=== PATIENT | male | born 1980 | race Caucasian/White ===

== ENCOUNTER 2021-06-16 13:34 | Inpatient (IN) | payer OTHER ==
[~2021-06-16] VITALS: Ht 175.3 cm; Wt 100.7 kg
[~2021-06-16 13:34] MED LIST: PREDNISONE10 M1 PO; SULFAMETHOXAZO1 EACH PO
[2021-06-16 15:20] LABS: HEMOGLOBIN 13.4 gm/dl (14.0-17.5); RED BLOOD COUNT 4.46 M/UL (4.20-5.50); WHITE BLOOD COUNT 8.1 K/UL (4.5-11.0)
[2021-06-16 15:54] LABS: BUN/CREATININE RATIO 8 (0-10)
[2021-06-16 19:08] LABS: BUN/CREATININE RATIO 7 (0-10)
[2021-06-16 23:32] LABS: BUN/CREATININE RATIO 7 (0-10)
[2021-06-17 05:30] LABS: RED BLOOD COUNT 4.36 M/UL (4.20-5.50); WHITE BLOOD COUNT 7.7 K/UL (4.5-11.0)
[2021-06-17 06:12] LABS: BUN/CREATININE RATIO 7 (0-10)
[2021-06-17 10:07] LABS: BUN/CREATININE RATIO 8 (0-10)
[2021-06-18 04:43] LABS: HEMOGLOBIN 11.6 gm/dl (14.0-17.5); RED BLOOD COUNT 3.93 M/UL (4.20-5.50)
[2021-06-18 05:15] LABS: BUN/CREATININE RATIO 13 (0-10)
[2021-06-19 03:58] LABS: HEMOGLOBIN 12.3 gm/dl (14.0-17.5); RED BLOOD COUNT 4.11 M/UL (4.20-5.50); WHITE BLOOD COUNT 8.2 K/UL (4.5-11.0)
[2021-06-19 04:28] LABS: BUN/CREATININE RATIO 12 (0-10)
--- NOTE | 2021-06-19 21:39 | NUR ---
PT HAS BEEN PERIODICALLY REFUSING DIFFERENT TYPES OF CARE. HE HAS REFUSED NEB TREATMENTS AND REFUSING TO WEAR THE BIPAP. PT IS NOW REFUSING TO WEAR THE PLASTIC FABRICATOR. I HAVE EDUCATED THE PT ON THE IMPORTANCE OF WEARING THE MONITOR SO WE ARE ABLE TO KEEP AN EYE ON HIS CARE. PT CLAIMS HE THINKS HE WILL GET BETTER IF HE DOESN'T HAVE TO FOCUS ON THE CORDS AND JUST HIS BREATHING. I AM NOT SURE THE PT UNDERSTANDS THE GRAVITY OF THE SITUATION. ALERTED .
[2021-06-20 09:05] LABS: RED BLOOD COUNT 4.06 M/UL (4.20-5.50)
[2021-06-20 09:12] LABS: WHITE BLOOD COUNT 10.9 K/UL (4.5-11.0)
[2021-06-20 09:33] LABS: BUN/CREATININE RATIO 15 (0-10)
[2021-06-20 10:17] LABS: ADENOVIRUS F 40/41 Not Detected (Negative); ASTROVIRUS Not Detected (Negative); CAMPYLOBACTER Not Detected (Negative); CLOSTRIDIUM DIFFICILE TOX A/B Not Detected (Negative); CRYPTOSPORIDIUM Not Detected (Negative); E.COLI 0157 Not Detected (Negative); ENTAMOEBA HISTOLYTICA Not Detected (Negative); ENTEROAGGREGATIVE E.COLI (EAEC Not Detected (Negative); ENTEROPATHOGENIC E.COLI (EPEC) Not Detected (Negative); ENTEROTOXIGENIC E.COLI (ETEC) Not Detected (Negative); GIARDIA LAMBLIA Not Detected (Negative); NOROVIRUS GI/GII Not Detected (Negative); PLESIOMONAS SHIGELLOIDES Not Detected (Negative); ROTOVIRUS A Not Detected (Negative); SALMONELLA Not Detected (Negative); SAPOVIRUS Not Detected (Negative); SHIG/ENTEROINVAS.ECOLI (EIEC) Not Detected (Negative); SHIGA-LIK TOX.PRO.E.COLI (STEC Not Detected (Negative); VIBRIO Not Detected (Negative); VIBRIO CHOLERAE Not Detected (Negative); YERSINIA ENTEROCOLITICA Not Detected (Negative)
[2021-06-21 03:17] LABS: BUN/CREATININE RATIO 14 (0-10)
[2021-06-22 03:30] LABS: BUN/CREATININE RATIO 17 (0-10)
[2021-06-23 09:12] LABS: BUN/CREATININE RATIO 16 (0-10)
[2021-06-24 04:24] LABS: BUN/CREATININE RATIO 19 (0-10)
--- NOTE | 2021-06-25 02:57 | NUR ---
0137 - DR. MILLER NOTIFIED OF PATIENT'S OXYGEN DROPPING AFTER TRYING TO SWITCH HIM TO BIPAP FROM AIRVO. ATTEMPT WAS MADE TO SWITCH BACK TO AIRVO, WITH A FURTHER DROP IN OXYGEN SATURATION, AND THEN PLACED BACK ON BIPAP, HOLDING AT 84-85% SATURATION. ORDERS GIVEN TO SWITCH BIPAP SETTINGS TO 20/14, AND IF STILL HYPOXIC TO SWITCH TO CPAP 18. 0152 - DR. MILLER NOTIFIED OF PATIENT'S OXYGEN SATURATION STILL REMAINING 84-85% ON ANY OF THE SETTINGS TRIED. PATIENT'S HEART RATE IS NOW IN 140'S, AND GETTING ANXIOUS WITH MASK. TOLD TO KEEP HIM ON CPAP 18, PRONE HIM, AND ASK ABOUT INTUBATION. 0157 - NOTIFIED DR. MILLER THAT PATIENT STATES HE CANNOT TOLERATE THE BIPAP MASK AND THAT HE WOULD RATHER BE PLACED ON LIFE SUPPORT THAN CONTINUE TO WEAR IT. TOLD TO CALL DR. OSWALD AND PREPARE FOR INTUBATION. 0200 - BROTHER, CORINE GONSALVES, NOTIFIED OF PATIENT'S NEED TO BE INTUBATED AND THAT HE WOULD BE MOVED TO ICU. 0215 - PATIENT PREPPED FOR INTUBATION. HR 128, BP 159/104, RR 41, 83% ON CPAP 100% FIO2. 0216 - DR. OSWALD IN ROOM, 20G L HAND PLACED BY WILLIS PRINCE RN 0219 - 250MG KETAMINE GIVEN. HR 118, BP 139/97, RR 51, 81%. 0220 - 40MG ROCURONIUM GIVEN. 0223 - ATTEMPTED INTUBATION WITH ISSUE PLACING, PATIENT HYPEROXYGENATED. 0225 - RE-ATTEMPT FOR INTUBATION. 7.5 ETT, 25 AT THE LIP. HR 65, BP 144/88, RR 11, 57%. PATIENT BAGGED UNTIL VENTILATOR CONNECTED. 0230 - PATIENT TAKEN TO ICU ON VENTILATOR, TRANSPORTED BY DR. OSWALD, LORIN CESPEDES, LIZ, MADELYN PETERSON, ON AED MONITOR.
--- NOTE | 2021-06-25 03:20 | NUR ---
ATTEMPTED PHONE CALL TO PATIENTS MOTHER LISTED EMERGENCY CONTACT. CALL WENT STRAIGHT TO A VOICEMAIL THAT HAS NOT BEEN SET UP AND COULD NOT LEAVE A MESSAGE.
[2021-06-25 05:07] LABS: HEMOGLOBIN 13.3 gm/dl (14.0-17.5); RED BLOOD COUNT 4.44 M/UL (4.20-5.50); WHITE BLOOD COUNT 15.9 K/UL (4.5-11.0)
[2021-06-25 05:36] LABS: BUN/CREATININE RATIO 29 (0-10)
[2021-06-26 05:13] LABS: HEMOGLOBIN 12.5 gm/dl (14.0-17.5); RED BLOOD COUNT 4.23 M/UL (4.20-5.50)
[2021-06-26 05:27] LABS: WHITE BLOOD COUNT 10.6 K/UL (4.5-11.0)
[2021-06-26 05:49] LABS: BUN/CREATININE RATIO 21 (0-10)
[2021-06-27 04:54] LABS: HEMOGLOBIN 11.6 gm/dl (14.0-17.5); RED BLOOD COUNT 3.86 M/UL (4.20-5.50); WHITE BLOOD COUNT 10.3 K/UL (4.5-11.0)
[2021-06-27 05:20] LABS: BUN/CREATININE RATIO 23 (0-10)
--- NOTE | 2021-06-27 09:14 | NUR ---
0800: PATIENT UNPRONED. SKIN ON PRESSURE POINTS ARE INTACT. CHEST TUBE IN PLACE. OXYGEN SATURATION IS 99%. FACIAL EDEMA 2+ AND NO TUBE GOINS REPLACED BY FISH BAIT PICKER.
[2021-06-28 05:25] LABS: HEMOGLOBIN 11.3 gm/dl (14.0-17.5); RED BLOOD COUNT 3.96 M/UL (4.20-5.50)
[2021-06-28 05:43] LABS: BUN/CREATININE RATIO 28 (0-10)
[2021-06-29 05:02] LABS: RED BLOOD COUNT 3.77 M/UL (4.20-5.50)
[2021-06-29 05:20] LABS: WHITE BLOOD COUNT 9.8 K/UL (4.5-11.0)
[2021-06-29 05:44] LABS: BUN/CREATININE RATIO 36 (0-10)
[2021-06-30 05:25] LABS: HEMOGLOBIN 10.7 gm/dl (14.0-17.5); RED BLOOD COUNT 3.8 M/UL (4.20-5.50); WHITE BLOOD COUNT 11.6 K/UL (4.5-11.0)
[2021-06-30 06:01] LABS: BUN/CREATININE RATIO 39 (0-10)
[2021-07-01 04:23] LABS: HEMOGLOBIN 11.5 gm/dl (14.0-17.5); RED BLOOD COUNT 3.96 M/UL (4.20-5.50); WHITE BLOOD COUNT 8.9 K/UL (4.5-11.0)
[2021-07-01 05:11] LABS: BUN/CREATININE RATIO 46 (0-10)
[2021-07-02 04:54] LABS: HEMOGLOBIN 12.4 gm/dl (14.0-17.5); RED BLOOD COUNT 4.28 M/UL (4.20-5.50); WHITE BLOOD COUNT 14.3 K/UL (4.5-11.0)
[2021-07-02 05:31] LABS: BUN/CREATININE RATIO 58 (0-10)
[2021-07-03 05:11] LABS: HEMOGLOBIN 11.2 gm/dl (14.0-17.5); RED BLOOD COUNT 3.89 M/UL (4.20-5.50)
[2021-07-03 05:53] LABS: BUN/CREATININE RATIO 58 (0-10)
[2021-07-04 05:37] LABS: HEMOGLOBIN 10.4 gm/dl (14.0-17.5); RED BLOOD COUNT 3.54 M/UL (4.20-5.50); WHITE BLOOD COUNT 8.9 K/UL (4.5-11.0)
[2021-07-04 06:15] LABS: BUN/CREATININE RATIO 61 (0-10)
--- NOTE | 2021-07-04 19:00 | NUR ---
PATIENT EXPERIENCING RAPID FLUCTUATIONS IN BLOOD PRESSURE THROUGHOUT THE DAY. DR. MONTE ON UNIT FOR THE ENTIRETY OF THE DAY AND AWARE OF THESE FLUCTUATIONS. SEDATION TITRATED MULTIPLE TIMES TO ACCOMODATE THESE FLUCTUATIONS TRYING TO GET THE PATIENT STABILIZED ON PRECEDEX DRIP AND WEAN DOWN THE DIPRIVAN PER DR. DOMINGUEZ'S REQUEST THIS AM. DR. DOMINGUEZ ALSO AWARE OF THESE RAPID FLUCTUATIONS AND CHANGES IN PATIENT CONDITION.
[2021-07-05 04:40] LABS: HEMOGLOBIN 11.4 gm/dl (14.0-17.5); RED BLOOD COUNT 3.88 M/UL (4.20-5.50)
[2021-07-05 05:10] LABS: BUN/CREATININE RATIO 65 (0-10)
[2021-07-06 05:08] LABS: WHITE BLOOD COUNT 11.4 K/UL (4.5-11.0)
[2021-07-06 05:12] LABS: HEMOGLOBIN 9.3 gm/dl (14.0-17.5); RED BLOOD COUNT 3.15 M/UL (4.20-5.50)
[2021-07-06 05:28] LABS: BUN/CREATININE RATIO 66 (0-10)
[2021-07-07 05:00] LABS: HEMOGLOBIN 9.6 gm/dl (14.0-17.5); RED BLOOD COUNT 3.27 M/UL (4.20-5.50); WHITE BLOOD COUNT 13.3 K/UL (4.5-11.0)
[2021-07-07 05:23] LABS: BUN/CREATININE RATIO 67 (0-10)
[2021-07-08 04:39] LABS: HEMOGLOBIN 8.3 gm/dl (14.0-17.5); RED BLOOD COUNT 2.8 M/UL (4.20-5.50); WHITE BLOOD COUNT 11.7 K/UL (4.5-11.0)
[2021-07-08 04:57] LABS: BUN/CREATININE RATIO 62 (0-10)
[2021-07-08 16:31] LABS: HEMOGLOBIN 9.2 gm/dl (14.0-17.5); WHITE BLOOD COUNT 13.4 K/UL (4.5-11.0)
[2021-07-08 17:05] LABS: RED BLOOD COUNT 3.11 M/UL (4.20-5.50)
[2021-07-09 05:17] LABS: HEMOGLOBIN 8.6 gm/dl (14.0-17.5); RED BLOOD COUNT 2.96 M/UL (4.20-5.50); WHITE BLOOD COUNT 11.3 K/UL (4.5-11.0)
[2021-07-09 05:41] LABS: BUN/CREATININE RATIO 52 (0-10)
[2021-07-10 05:34] LABS: HEMOGLOBIN 8.4 gm/dl (14.0-17.5); RED BLOOD COUNT 2.89 M/UL (4.20-5.50); WHITE BLOOD COUNT 10.3 K/UL (4.5-11.0)
[2021-07-10 05:56] LABS: BUN/CREATININE RATIO 58 (0-10)
[2021-07-11 05:10] LABS: HEMOGLOBIN 9.3 gm/dl (14.0-17.5); RED BLOOD COUNT 3.08 M/UL (4.20-5.50); WHITE BLOOD COUNT 9.7 K/UL (4.5-11.0)
[2021-07-11 05:33] LABS: BUN/CREATININE RATIO 69 (0-10)
[2021-07-12 05:06] LABS: HEMOGLOBIN 8.5 gm/dl (14.0-17.5); RED BLOOD COUNT 2.89 M/UL (4.20-5.50); WHITE BLOOD COUNT 8.8 K/UL (4.5-11.0)
[2021-07-12 05:28] LABS: BUN/CREATININE RATIO 54 (0-10)
[2021-07-13 05:37] LABS: HEMOGLOBIN 8.9 gm/dl (14.0-17.5); RED BLOOD COUNT 2.98 M/UL (4.20-5.50)
[2021-07-14 04:16] LABS: RED BLOOD COUNT 3.01 M/UL (4.20-5.50); WHITE BLOOD COUNT 8.7 K/UL (4.5-11.0)
[2021-07-14 08:50] LABS: BUN/CREATININE RATIO 44 (0-10)
[2021-07-15 05:56] LABS: HEMOGLOBIN 8.9 gm/dl (14.0-17.5); RED BLOOD COUNT 2.95 M/UL (4.20-5.50); WHITE BLOOD COUNT 8.3 K/UL (4.5-11.0)
[2021-07-15 08:09] LABS: BUN/CREATININE RATIO 51 (0-10)
[2021-07-16 08:20] LABS: HEMOGLOBIN 8.1 gm/dl (14.0-17.5); RED BLOOD COUNT 2.69 M/UL (4.20-5.50)
[2021-07-16 08:23] LABS: WHITE BLOOD COUNT 5.6 K/UL (4.5-11.0)
[2021-07-16 08:47] LABS: BUN/CREATININE RATIO 43 (0-10)
--- NOTE | 2021-07-17 15:42 | NUR ---
0700- LARGE HEMATOMA ON BILATERAL LOWER ABDOMINAL QUADRANTS, MD MONTE NOTIFIED AND WCTM. NO ORDERS RECIEVED.
[2021-07-18 11:07] LABS: HEMOGLOBIN 8.3 gm/dl (14.0-17.5); RED BLOOD COUNT 2.73 M/UL (4.20-5.50); WHITE BLOOD COUNT 5.4 K/UL (4.5-11.0)
[2021-07-18 11:51] LABS: BUN/CREATININE RATIO 39 (0-10)
[2021-07-19 05:13] LABS: HEMOGLOBIN 8.8 gm/dl (14.0-17.5); RED BLOOD COUNT 2.88 M/UL (4.20-5.50); WHITE BLOOD COUNT 5.4 K/UL (4.5-11.0)
[2021-07-19 05:35] LABS: BUN/CREATININE RATIO 53 (0-10)
[2021-07-20 11:58] LABS: BUN/CREATININE RATIO 42 (0-10)
--- NOTE | 2021-07-20 16:09 | NUR ---
1215: OBSERVED PATIENT IN DISTRESS FROM POD OUTSIDE OF PATIENTS ROOM. PATIENTS OXYGEN SATURATION 98 PERCENT ON CPAP MODE PRESSURE SUPPORT OF 8. ORAL SUCTIONED PATIENT. PTS OXYGEN SATURATION 96%. SUCTIONED PATIENTS TRACH AND MADE SURE CONNECTIONS WERE SECURE. DR HAMM CALLED TO BEDSIDE TO MONITOR PATIENT. PEAK PRESSURES HIGH ON VENTILATOR. VENTILATOR SETTINGS CHANGED TO ASSIST CONTROL RATE OF 20, TV 450, FI02 100 PERCENT. PATIENT CONTINUED TO DECLINE DESPITE CHANGES MADE. MD BAGGED PATIENT AND PREPARED FOR EMERGENT BRONCHOSCOPY. 1220: EMERGENT BEDSIDE BRONCHOSCOPY/ DR HAMM, RN, AND RESPIRATORY THERAPIST AT [facility]. SPECIMENS OBRAINED. SEDATION INITIATED PER MD ORDER 1222: LEVOPHED TITRATED BY . AT BEDSIDE. PT HYPOTENSIVE BP 62/33 HEART RATE 103. 1230: PATIENTS MOTHER CONTACTED VIA PHONE TO GIVE UPDATE ON PATIENT 1237: PATIENTS BROTHER CONTACTED VIA PHONE TO GIVE UPDATE ON PATIENT
--- NOTE | 2021-07-20 16:25 | NUR ---
1400: DR HAMM CONTACTED ABOUT PATIENTS FLUCTIATION IN HEART RATE AND BLOOD PRESSURE. PTS HR 139, BP 71/40. MD AT BEDSIDE. SEE EMAR FOR MEDICATIONS ADMINISTERED. DR HAMM DOES NOT WANT TO CONSULT CARDIOLOGY AT THIS TIME 1415: DR GORE, HOSPITALIST, NOTIFIED OF PATIENTS CONDITION.
[2021-07-21 08:19] LABS: HEMOGLOBIN 8.1 gm/dl (14.0-17.5); RED BLOOD COUNT 2.68 M/UL (4.20-5.50); WHITE BLOOD COUNT 5.3 K/UL (4.5-11.0)
[2021-07-21 08:40] LABS: BUN/CREATININE RATIO 53 (0-10)
[2021-07-22] MEDS ORDERED: VITAMIN B-1100 M1 PO (09:54)
[2021-07-22] MEDS ORDERED: KEPPRA 500 MG500 MG PEG (09:54)
[2021-07-22] MEDS ORDERED: VITAMIN B-121000 MC3 PEG (09:54)
[2021-07-22] MEDS ORDERED: HUMALOG 10100 UNITS/ SC (09:54)
[2021-07-22] MEDS ORDERED: LABETALOL H5 MG/1 M1 IVP (09:54)
[2021-07-22] MEDS ORDERED: ACETAMINOPHEN325 MG PO (09:54)
[2021-07-22] MEDS ORDERED: FOLIC ACID 1 MG1 MG GT (09:54)
[2021-07-22] MEDS ORDERED: PERCOCET 5/325 T1 EA PEG (09:54)
[2021-07-22] MEDS ORDERED: ENOXAPARIN40 MG/0.4 SC (09:54)
[2021-07-22] MEDS ORDERED: HYDRALAZIN20 MG/1 ML IVP (09:54)
[2021-07-22] MEDS ORDERED: VITAMIN C 500500 MG PO (09:54)
[2021-07-22] MEDS ORDERED: IPRAT-ALBUT 0.5-3 ML NEB (09:54)
[2021-07-22] MEDS ORDERED: PROTONIX IV40 MG IVP (09:54)
== END 2021-07-22 11:30 | DRG 3 ==
LOC: ER1 13:34 → 2 EAST 16:54 → CDU 16:54 → PROG CARE 16:54 → CCU 16:54 → ER1 16:54 → PROG CARE 06-18 01:00 → CDU 06-18 01:00 → PROG CARE 06-18 01:00 → 2 EAST 06-25 03:41 → CCU 06-25 03:41 → 2 EAST 06-25 04:08 → CDU 06-25 16:45 → CCU 07-22 11:30
PROVIDERS: Internal Medicine; Internal Medicine Pulmonary Disease; Physician Assistant Medical; Student in an Organized Health Care Education/Training Program; Surgery; ADMIT Internal Medicine
PROC: XW033E5 Introduction of Remdesivir Anti-infective into Peripheral Vein, Percutaneous Approach, New Technology Group 5 (ICD-10-PCS; 2021-06-16)
PROC: 3E0333Z Introduction of Anti-inflammatory into Peripheral Vein, Percutaneous Approach (ICD-10-PCS; 2021-06-16)
PROC: 5A1955Z Respiratory Ventilation, Greater than 96 Consecutive Hours (ICD-10-PCS; 2021-06-25)
PROC: 0BH17EZ Insertion of Endotracheal Airway into Trachea, Via Natural or Artificial Opening (ICD-10-PCS; 2021-06-25)
PROC: 0W9B00Z Drainage of Left Pleural Cavity with Drainage Device, Open Approach (ICD-10-PCS; 2021-06-25)
PROC: 05HM33Z Insertion of Infusion Device into Right Internal Jugular Vein, Percutaneous Approach (ICD-10-PCS; 2021-06-25)
PROC: B543ZZA Ultrasonography of Right Jugular Veins, Guidance (ICD-10-PCS; 2021-06-25)
PROC: 8E0ZXY6 Isolation (ICD-10-PCS; 2021-06-25)
PROC: 0DH67UZ Insertion of Feeding Device into Stomach, Via Natural or Artificial Opening (ICD-10-PCS; 2021-07-05)
PROC: 0D968ZZ Drainage of Stomach, Via Natural or Artificial Opening Endoscopic (ICD-10-PCS; 2021-07-09)
PROC: 0DH63UZ Insertion of Feeding Device into Stomach, Percutaneous Approach (ICD-10-PCS; 2021-07-11)
PROC: 3E0G76Z Introduction of Nutritional Substance into Upper GI, Via Natural or Artificial Opening (ICD-10-PCS; 2021-07-11)
PROC: 4A10X4Z Monitoring of Central Nervous Electrical Activity, External Approach (ICD-10-PCS; 2021-07-15)
PROC: 0B113F4 Bypass Trachea to Cutaneous with Tracheostomy Device, Percutaneous Approach (ICD-10-PCS; principal; 2021-07-20)
PROC: 0B9F8ZX Drainage of Right Lower Lung Lobe, Via Natural or Artificial Opening Endoscopic, Diagnostic (ICD-10-PCS; 2021-07-20)
PROC: 3E033XZ Introduction of Vasopressor into Peripheral Vein, Percutaneous Approach (ICD-10-PCS; 2021-07-21)
DX: U07.1 COVID-19 (principal); J12.82 Pneumonia due to coronavirus disease 2019; J15.9 Unspecified bacterial pneumonia; J80 Acute respiratory distress syndrome; A41.9 Sepsis, unspecified organism; R65.20 Severe sepsis without septic shock; G93.41 Metabolic encephalopathy; K25.4 Chronic or unspecified gastric ulcer with hemorrhage; E87.1 Hypo-osmolality and hyponatremia; M62.82 Rhabdomyolysis; I47.1 Supraventricular tachycardia; L89.152 Pressure ulcer of sacral region, stage 2; E87.2 Acidosis; K92.0 Hematemesis; J95.859 Other complication of respirator [ventilator]; E87.6 Hypokalemia; T81.82XA Emphysema (subcutaneous) resulting from a procedure, initial encounter; E66.9 Obesity, unspecified; G40.909 Epilepsy, unspecified, not intractable, without status epilepticus; R94.5 Abnormal results of liver function studies; E87.5 Hyperkalemia; T17.990A Other foreign object in respiratory tract, part unspecified in causing asphyxiation, initial encounter; D53.1 Other megaloblastic anemias, not elsewhere classified; D64.9 Anemia, unspecified; E83.39 Other disorders of phosphorus metabolism; R73.9 Hyperglycemia, unspecified; T38.0X5A Adverse effect of glucocorticoids and synthetic analogues, initial encounter; E03.9 Hypothyroidism, unspecified; K59.00 Constipation, unspecified; D69.6 Thrombocytopenia, unspecified; K31.89 Other diseases of stomach and duodenum; Z91.14 Patient's other noncompliance with medication regimen
CPT/HCPCS: 31500; 36415; 36600; 70450; 70551; 71045; 71250; 74018; 76705; 80048; 80053; 80202; 82272; 82550; 82553; 82728; 82803; 82962; 83605; 83615; 83690; 83735; 83874; 83880; 84100; 84132; 84295; 84484; 85007; 85025; 85027; 85379; 85384; 85610; 85652; 85730; 86140; 87040; 87070; 87077; 87081; 87186; 87205; 87507; 93005; 94002; 94003; 94640; 94660; 94760; 95819; 96374; 97110; 97110-GP-CQ; 97161; 97167; 99285; A6212; C1751; C1769; C9113; G0378; J0282; J0360; J0456; J0696; J1100; J1650; J1940; J1953; J2020; J2060; J2185; J2250; J2543; J2704; J3010; J3370; J7030; J7040; J7050; J7070; J7120; P9047; Q0177; U0002